=== PATIENT | female | born 1950 | race Caucasian/White ===

== ENCOUNTER 2022-07-17 07:24 | Inpatient (IN) ==
--- NOTE | 2022-07-08 15:44 | XRay Report ---
CLINICAL INFORMATION: Preop for bowel obstruction COMPARISON: 07/27/2016 TECHNIQUE: PA and lateral views were obtained. FINDINGS: The heart size, mediastinum and pulmonary vessels are unremarkable. The lungs are clear. There are no effusions. The bones and soft tissues are within normal limits. IMPRESSION: Normal chest. Interpreted and Authenticated by: Mello Alejandra 07/08/22
[2022-07-08 18:23] LABS: Basophils # (Auto) 0.08 K/mcL (0.00-0.30); Basophils % (Auto) 1.3 % (0.0-2.0); Eosinophils # (Auto) 0.24 K/mcL (0.00-0.70); Eosinophils % (Auto) 3.8 % (0.0-7.0); Hematocrit 33.4 % (34.1-44.9); Hemoglobin 10.5 g/dL (11.2-15.7); Lymphocytes # (Auto) 1.58 K/mcL (1.50-4.80); Lymphocytes % (Auto) 24.7 % (15.5-49.0); Mean Cell Volume 93.3 fL (80.0-100.0); Mean Corpuscular HGB Conc 31.4 g/dL (31.0-36.0); Mean Platelet Volume 10.2 fL (8.8-12.5); Monocytes # (Auto) 0.51 K/mcL (0.10-0.90); Platelet Count 293 K/mcL (140-440); RBC 3.58 M/mcL (3.59-5.38); Red Cell Distribution Width 12.9 % (11.5-14.5); WBC 6.4 K/mcL (4.5-11.0)
[2022-07-08 18:46] LABS: INR 0.9 (0.9-1.1); Partial Thromboplastin Time 28.1 sec (20.0-37.0); Prothrombin Time 12.8 sec (11.9-14.5)
[2022-07-08 18:47] LABS: ALT/SGPT 10 U/L (<40); AST/SGOT 15 U/L (<32); Albumin 4.2 gm/dL (3.2-5.2); Albumin/Globulin Ratio 1.8 (1.0-2.3); Alkaline Phosphatase 87 U/L (39-117); Bilirubin,Total 0.3 mg/dL (0.1-1.0); Blood Urea Nitrogen 23 mg/dL (8-23); Calcium 8.7 mg/dL (8.6-10.4); Carbon Dioxide 26 mmol/L (22-30); Chloride 99 mmol/L (96-108); Globulin 2.4 gm/dL (2.2-3.7); Glomerular Filtration Rate 45; Glucose 84 mg/dL (70-105)
--- NOTE | 2022-07-09 08:47 | EKG ---
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
[~2022-07-17 07:24] MED LIST: CEFEPIME 2 GM VIAL IV SCH
--- OUTSIDE RECORDS SUMMARY | 2022-07-17 07:27 | External Medical Summary | Encounter Summary ---
:1950 Author Care Team Providers Name Role Phone Georges Mchugh MD Primary Care Provider [phone] Reason for Visit CARDIAC CLEARANCE Assessment and Plan 1. Preoperative cardiovascular examinat ion Stress test suggestive of global ischem ia with increase TID ratio. This is not a very specific marker of ischemia -- 50% false positive rate? I am not sure however that we can completely discount it. I wo uld like to take another look at her heart with a stress echo -- a better test to l ook for "balanced" ischemia. 2. Cardiovascular stress test abnormal See above. Elevated TID ratio. Not terr ibly specific. High false positive rate. Recommend stress echo -- not dependant o n relative blood flow. stress echocardiogram (PROC) 3. Essential hypertension On treatment 4. Mixed hyperlipidemia On treatment Discussion Note 1. Stress echo 2. Call with results 3. If normal, then may proceed with surg manav. Patient educational handouts: No information available. Plan of Care Reminders Provider Appointments None recorded. Lab None recorded. Referral None recorded. Procedures Stress Echocardiogram (PROC) 05/15/2022 [facility] [place] Radiology Surgeries None recorded. Imaging None recorded. Medications Name Start Date atorvastatin 10 mg tablet TAKE 1 TABLET BY MOUTH ONCE DAILY calcium PO QD citalopram 40 mg tablet TAKE 1 TABLET BY MOUTH ONCE DAILY estradiol 1 mg tablet TAKE 1 TABLET BY MOUTH ONCE DAILY ketorolac 0.5 % eye drops INSTILL 1 DROP INTO EACH EYE ONCE DAILY losartan 100 mg-hydrochlorothiazide 12.5 mg tablet TAKE 1 TABLET BY MOUTH ONCE DAILY magnesium once daily omeprazole 20 mg capsule,delayed release Take 2 capsules by mouth once daily Prolia 60 mg/mL subcutaneous syringe Inject 1 mL as needed by subcutaneous route. osteoporosis m81.0, prolia J0897, T score -2.3 Notes: Medications were verified with bottles. -AG 05/15/22 Medications Administered None recorded. Vitals Height Weight BMI Blood Pressure 4 ft 11 in 151 lbs 30.5 kg/m2 122/83 mm[Hg] Results Lab Results None recorded. 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 What type of diet are you following? REGULAR Are you able to walk? YESWOREST Are you able to care for yourself? Y Are you currently employed? N Have you processed blood or body fluids N from an Ebola virus disease patient without appropriate PPE? What is your relationship status? Notes : Do you have any pets? Y Have you been to an area known to be N high risk for COVID-19? Are you deaf or do you have serious N difficulty hearing? Are you passively exposed to smoke? Y No cassie: as a child and adult Do you use your seat belt or car seat Y routinely? Do you or have you ever used any other N forms of tobacco or nicotine? Do you have difficulty dressing or N bathing? How many children do you have? 2 Has tobacco cessation counseling been N provided? Are you blind or do you have difficulty N seeing? Do you have smoke and carbon monoxide N detectors in your home? In the 14 days before symptom onset, N have you had close contact with a person who is under investigation for COVID-19 while that person was ill? Do you have difficulty doing errands N alone? What was the date of your most recent 05/15/2022 tobacco screening? Do you reside in or have you traveled to an area where Ebola virus transmission is active? Do you have an advanced directive? N Do you use any illicit or recreational N drugs? What is your exercise level? Occasional In the 14 days before symptom onset, N have you had close contact with a laboratory-confirmed COVID-19 while that case was ill? Have there been any changes to your N family or social situation? Live alone or with others? with others Are you sexually active? N Do you have difficulty concentrating, N remembering or making decisions? What is your level of caffeine Occasional consumption? Do you feel stressed (tense, restless, [id number] nervous, or anxious, or unable to sleep at night)? Functional Status No Impairment. Past Encounters 05/15/2022 Preoperative Cardiovascular Examination; Cardiovascular Stress Test Abnormal; Essential Hypertension; Mixed Hyperlipidemia Db Ugalde MD: [address] [place] [address] , [place] [phone], Ph. History of Present Illness Note: <div>Preoperative cardiac evaluation. Pinched nerve in back of neck. Some numbness with radiation down left arm. Occasional neck and back pains. Not necessarily exertional. Is relatively active.Stress test with elevated TID ratio. </div><div>
</div><div>
</div><div>
</div><div>CARDIAC and medical history:</div><div>Prior gastric bypass 1999</div><div>Severe constipation</div><div>
</div><div>Data review:</div><div>I have independently interpreted:</div><div>Echo 03/2022. Normal LV function normal valves Asc aorta 41</div><div>Malena 03/2022. Normal perfusion. TID 1.28</div><div>Chest CT 02/2022. Minimal coronary ather o</div><div>
</div><div>Labs:</div><div>Cr 1.3 02/2022</div><div>Cr 1.1 11/2021</div><div>AST 16 11/2021</div><div>LDL 97 2021</div><div>
</div><div>
</div> Review of Systems Brief Cardiology ROS Reported By: Patient Cardio Basic: Cardiovascular Symptoms: no chest pressure, no lightheadedness, no chest pa in, no dyspnea on exertion, no fatigue, no leg edema, no sy ncope, no orthopnea, no palpitations, no PND, no lalitha rtness of breath, no claudication Constitutional: Constitutional: no fever, no night sweats, no significant weight gain, no significant weight loss, no exercise intolerance Eyes: Eyes: no dry eyes, no irrita tion, no vision change ENMT: Ears: no difficulty hearing, no ear pain. Nose: no frequent nosebleeds, no nose/sinus pr oblems. Mouth/Throat: no sore throat, no bleeding gums, no snoring, no dry mouth, no mouth ulcers, no oral abnormalitie s, no teeth problems Respiratory: Respiratory: no cough, no wh eezing, no coughing up blood, no sleep apnea Musculoskeletal: Musculoskeletal: no muscle a ches, no muscle weakness, no arthralgias/joint pain, no b ack pain, no swelling in the extremities Neurologic: Neurologic: no loss of consc iousness, no weakness, no numbness, no seizures, no di zziness, no headaches Psychiatric: Psych: no depression, no sle ep disturbances, feeling safe in relationship, no alcohol abu se Hematologic/Lymphatic: Hematologic/Lymphatic no swo llen glands, no bruising Physical Exam Notes: <div>Examination
</div><d iv>Vitals see above</div><div>
</div ><div>General. No acute distress. Conversant.</div><div>
&l t;/div><div>HEENT. Normocephalic atraumatic. Mucous membranes moist. Scle ra anicteric. Oropharynx clear.</div><div>
</div>< div>Chest. Clear. Normal effort. Symmetric.</div><div>
</d iv><div>Cardiovascular. JVP is normal. Normal S1 and S2. No gallops or rubs.< /div><div>
</div><div>Abdomen. Normal bowel sounds. Soft nontender nondi stended. No appreciated hepatosplenomegaly.</div><di v>
</div><div>Extremities. No cyanosis. No clubbing. No edema.</div><di v>
</div><div>Skin. Warm and dry. No rashes.</div><div>
</div> <div>Neurological. Alert and oriented x3. Nonfocal. No asymmetry is no chauncey.</div><div>
</div><div>Psychiatric. Affect and tone are normal.< /div><div>
</div><div>
</div><div>
</div>
--- OUTSIDE RECORDS SUMMARY | 2022-07-17 07:27 | External Medical Summary | Encounter Summary ---
:1950 Author Care Team Providers Name Role Phone Georges Mchugh MD Primary Care Provider [phone] Reason for Visit injection Assessment and Plan 1. Osteoporosis had dexa 2019, now on prolia shots q6m Prolia 60 mg/mL subcutaneous syringe patient follow up phone call* - proli a injection due 01/02/23 Discussion Note: None recorded.Patient educational handouts: No information available. Plan of Care Reminders Provider Appointments None recorded. Lab None recorded. Referral None recorded. Procedures None recorded. Surgeries None recorded. Imaging None recorded. Medications [...] verified with bottles. -AG 05/15/22 Medications Administered Name Date Prolia 60 mg/mL subcutaneous syringe [id number]:1 8:10 Inject 1 mL as needed by subcutaneous route. Vitals None recorded. Results Lab Results None recorded. 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 Vaccine List Vaccine Type COVID-19, mRNA, LNP-S, [...] consumption? Do you feel stressed (tense, restless, [id number] nervous, or anxious, or unable to sleep at night)? Functional Status No Impairment. Past Encounters 07/04/2022 Osteoporosis Georges Mchugh MD: [address] [place] [address], [address], [place] [address], Ph. History of Present Illness None recorded. Review of Systems None recorded. Physical Exam None recorded.
--- OUTSIDE RECORDS SUMMARY | 2022-07-17 07:27 | External Medical Summary ---
:1950 Author Care Team Providers Name Role Phone ISREAL GARCIA MD Primary Care Provider [phone] Allergies Code Code System Name Reaction Severity Status Onset 2670 RxNorm Codeine Other Active 812414 RxNorm Demerol Vomiting Active Medications Name Status Start Date Stop Date alendronate 70 mg tablet Completed 021 atorvastatin 10 mg tablet Active Not av ailable azithromycin 250 mg tablet Completed 12/05 betamethasone valerate 0.1 % topical cream Completed 05/15/[address] - ER 3 mg capsule,delayed,extended release Complet ed 11/20/2020 Take 3 capsules every day by oral route. calcium Active Not available PO QD cholestyramine (with sugar) 4 gram oral powder Completed 11/20/2020 citalopram 40 mg tablet Active Not avai lable clarithromycin 500 mg tablet Completed 09/2020 estradiol 1 mg tablet Active Not availa ble hydrocodone 10 mg-acetaminophen 325 mg tablet Completed 10/18/2020 hydrocodone 5 mg-acetaminophen 325 mg tablet Completed 06/29/2019 hydrocodone 7.5 mg-acetaminophen 325 mg tablet Completed 05/15/2022 TAKE 1 TO 2 TABLETS BY MOUTH EVERY 6 HO URS NEEDED . DO NOT EXCEED 6 PER 24 HOURS ketorolac 0.5 % eye drops Active Not av ailable INSTILL 1 DROP INTO EACH EYE ONCE DAILY losartan 100 mg-hydrochlorothiazide 12.5 mg tablet Active Not available magnesium Active Not available once daily metoclopramide 5 mg tablet Completed 10/06 metoprolol succinate ER 50 mg tablet,extended release 24 hr Comp leted 10/18/2020 take 50mg at first sign of bp over 160 mmhg systolic metronidazole 500 mg tablet Completed 09/2020 derorjvl-btjgoykul-vmhvidhw 3.5 mg/mL-10,000 unit/mL-0.1% eye dr ops Completed 05/15/2022 INSTILL 1 DROP INTO EACH EYE THREE TIMES DAILY omeprazole 20 mg capsule,delayed release Active Not available oseltamivir 75 mg capsule Completed 2021 oxycodone 5 mg tablet Completed 12/06/2019 Prolia 60 mg/mL subcutaneous syringe Active Not available Inject 1 mL as needed by subcutaneous route. osteoporosis m81.0, prolia J0897, T score -2.3 promethazine 25 mg tablet Completed 2021 TAKE 1 TABLET BY MOUTH EVERY 6 HOURS NEEDED FOR NAUSEA tranexamic acid 650 mg tablet Completed TAKE 2 TABLETS BY MOUTH UPON ARRIVAL HOME THEN 2 TABLETS AT BED TIME. Ventolin HFA 90 mcg/actuation aerosol inhaler Completed 04/09/2021 Notes: Medications were verified with bottles. 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 Osteoporosis Active 04/06/2020 Hyperlipidemia Active 04/11/2022 Intussusception of Intestine Active 04/11/2022 Procedures Date Name Performed by 01/20/2019 MRI, Knee, W/o Contrast [facility] [address] [facility] [place] [id number] (Work [address]) 04/05/2019 MRI, Upper Extremity Joint(s), W/o [facility] Contrast [address] [facility] [place] [id number] (Work Place) 04/05/2019 Dexa [facility] [address] [place] [address] (Work Place) 04/06/2020 Dexa [facility] [address] [place] [address] (Work Place) 04/06/2020 MAMMO, Screening, Bilateral [facility] [address] [place] [address] (Work Place) 04/09/2021 MAMMO, Screening, Digital, Bilateral [facility] [address] [place] [address] (Work Place) 2022 CT, Abdomen, W/o Contrast [facility] [address] [place] [address] (Work Place) 02/27/2022 MRI, Liver, W/wo Contrast [facility] [address] [place] [address] (Work Place) 02/27/2022 CT, Chest, W/o Contrast [facility] [address] [place] [address] (Work Place) 04/18/2022 MAMMO, Screening, Digital, Bilateral [facility] [address] [place] [address] (Work Place) 04/11/2022 DEXA, Axial Skeleton [facility] [address] [place] [address] (Work Place) Results Lab Results Date Name Specimen Result Interpretation Description Value Range Status Address 05/14/2022 Lipid Plasma High Cholesterol 218 <200 Final Pathologists' Panel, mg/dL mg/dL Regional L ab: Blood [address] [place] [address] Plasma Triglycerides 143 <150 Final Pa thologists' mg/dL mg/dL Regional L ab: [address] [place] [address] Plasma LDL,calculate 97 <100 Final Pa thologists' d mg/dL mg/dL Regional L ab: [address] [place] [address] Plasma HDL 93 >40 Final Pathologis ts' Cholesterol mg/dL mg/dL Regio nal Lab: [address] [place] [address] Plasma non-HDL 125 <130 Final Patholog ists' Cholesterol mg/dL mg/dL Regio nal Lab: [address] [place] [address] 12/18/2021 CMP, Plasma Glucose,rando 90 70-105 Final Pathologists' Serum or m mg/dL mg/dL Regional Lab: Plasma [address] [place] [address] Plasma High Blood Urea 25 8-23 Final Patho logists' Nitrogen mg/dL mg/dL Regional Lab: [address] [place] [address] Plasma Creatinine 1.1 0.6-1.1 Final Path ologists' mg/dL mg/dL Regional L ab: [address] [place] [address] Plasma Sodium 137 133-145 Final Patholog ists' mmol/L mmol/L Regional L ab: [address] [place] [address] Plasma Potassium 4.3 3.3-5.1 Final Patho logists' mmol/L mmol/L Regional L ab: [address] [place] [address] Plasma Chloride 101 96-108 Final Patholo gists' mmol/L mmol/L Regional L ab: [address] [facility] , [place] Plasma Carbon 26 22-30 Final Pathologi sts' Dioxide mmol/L mmol/L Regional Lab: [address] [place] [address] , [place] Plasma Anion Gap 10.0 8.0-16. Final Patho logists' 0 Regional L ab: [address] [facility] , [place] Plasma Calcium 9.2 8.6-10. Final Patholo gists' mg/dL 4 mg/dL Regional Lab: [address] [place] [address] , [place] Plasma Total Protein 6.7 5.9-8.4 Final P athologists' gm/dL gm/dL Regional L ab: [address] [place] [address] , [place] Plasma Albumin 4.1 3.2-5.2 Final Patholo gists' gm/dL gm/dL Regional L ab: [address] [place] [address] , [place] Plasma Globulin 2.6 2.2-3.7 Final Pathol ogists' gm/dL gm/dL Regional L ab: [address] [place] [address] , [place] Plasma Alb/glob 1.6 1.0-2.3 Final Pathol ogists' Ratio Regional L ab: [address] [place] [address] , [place] Plasma Bilirubin,tot 0.2 0.1-1.0 Final P athologists' al mg/dL mg/dL Regional L ab: [address] [facility] , [place] Plasma AST/SGOT 16 U/L <32 U/L Final Pathol ogists' Regional L ab: [address] [place] [address] , [place] Plasma ALT/SGPT 12 U/L <40 U/L Final Pathol ogists' Regional L ab: [address] [place] [address] , [place] Plasma Alkaline 69 U/L 39-117 Final Patholo gists' Phosphatase U/L Regio nal Lab: [address] [place] [address] , [place] Plasma Glomerular 51 Final Patho logists' Filtration Region al Lab: Rate [address] [facility] , [place] 12/18/2021 Magnesium Plasma Magnesium 2.2 1.6-2.5 Final Pathologists' , Serum mg/dL mg/dL Regional Lab: or Plasma [address] [place] [address], [place] 12/18/2021 Phosphoru Plasma Phosphorus 4.3 2.5-4.5 Anaya l Pathologists' s, Serum mg/dL mg/dL Regional Lab: or Plasma [address] [place] [address], [place] 08/21/2021 CBC W/ Whole Wbc 8.6 4.5-11. Final Patho logists' Auto Diff Blood K/mcL 0 K/mcL Region al Lab: [address] [facility] , [place] Whole Rbc 4.39 3.59-5. Final Pathologi sts' Blood M/mcL 38 Regional L ab: M/mcL [address] [facility] [place] [address] , [place] Whole Hgb 12.0 11.2-15 Final Pathologi sts' Blood g/dL .7 g/dL Regional Lab: [address] [facility] , [place] Whole Hct 37.3 % 34.1-44 Final Pathologi sts' Blood .9 % Regional L ab: [address] [facility] , [place] Whole Mcv 85.0 fL 80.0-10 Final Patholog ists' Blood 0.0 fL Regional L ab: [address] [facility] , [place] Whole Mch 27.3 pg 26.0-34 Final Patholog ists' Blood .0 pg Regional L ab: [address] [facility] , [place] Whole Mchc 32.2 31.0-36 Final Pathologi sts' Blood g/dL .0 g/dL Regional Lab: [address] [facility] , [place] Whole High Rdw 15.1 % 11.5-14 Final Pathologi sts' Blood .5 % Regional L ab: [address] [facility] , [place] Whole Plt CT 351 140-440 Final Patholog ists' Blood K/mcL K/mcL Regional L ab: [address] [facility] , [place] Whole Mpv 10.2 fL 7.4-10. Final Patholog ists' Blood 4 fL Regional L ab: [address] [facility] , [place] Whole Neut % 62.5 % 38.0-78 Final Patholog ists' Blood .0 % Regional L ab: [address] [facility] [place] [facility] [address] , [place] Whole Lymph % 23.9 % 15.5-49 Final Patholo gists' Blood .0 % Regional L ab: [address] [facility] [address] , [place] Whole [place] % 8.0 % 1.0-12. Final Patholog ists' Blood 0 % Regional L ab: [address] [facility] [address] , [place] Whole Eos % 4.3 % 0.0-7.0 Final Pathologi sts' Blood % Regional L ab: [address] [facility] [address] , [place] Whole Baso % 1.3 % 0.0-2.0 Final Patholog ists' Blood % Regional L ab: [address] [facility] , [place] Whole Absolute 5.40 1.80-8. Final Pathol ogists' Blood Neutrophil K/mcL 00 Region al Lab: Count K/mcL [address] [facility] , [place] Whole Lymph # 2.06 1.50-4. Final Patholo gists' Blood K/mcL 80 Regional L ab: K/mcL [address] [facility] , [place] Whole [place] # 0.69 0.10-0. Final Patholog ists' Blood K/mcL 90 Regional L ab: K/mcL [address] [facility] , [place] Whole Eos # 0.37 0.00-0. Final Pathologi sts' Blood K/mcL 70 Regional L ab: K/mcL [address] [facility] , [place] Whole Baso # 0.11 0.00-0. Final Patholog ists' Blood K/mcL 30 Regional L ab: K/mcL [address] [facility] , [place] 08/21/2021 Reticuloc Whole Retic Count 0.05 0.02-0. Fin al Pathologists' yte Blood Abs M/mcL 10 Regional L ab: Count, M/mcL [address] [facility] , Absolute, [facility] n Blood Whole Retic Percent 1.13 % 0.50-1. Final P athologists' Blood 50 % Regional L ab: [address] [place] [address] 08/21/2021 Ferritin, Plasma Low Ferritin 19.4 30.0-40 Final Pathologists' Serum or NG/mL 0.0 Regional Lab: Plasma NG/mL [address] [place] [address] 08/21/2021 TIBC Plasma Iron 74 37-145 Final Pathol ogists' (Total ug/dL ug/dL Regional L ab: Iron-bind [address] [facility], ing [place] Capacity) , Serum Plasma Unsaturated 345 112-346 Final Pat hologists' Iron Binding mcg/dL mcg/dL Ana M onal Lab: Cap [address] [place] [address] Plasma TIBC 419 228-428 Final Pathologi sts' Calculation ug/dL ug/dL Regio nal Lab: [address] [place] [address] Plasma % Transferrin 18 % 15-50 % Final P athologists' Saturation Region al Lab: [address] [place] [address] 06/27/2021 Magnesium Plasma Magnesium 2.2 1.6-2.5 Final Pathologists' , Serum mg/dL mg/dL Regional Lab: or Plasma [address] [place] [address] 06/27/2021 Phosphoru Plasma Phosphorus 3.8 2.5-4.5 Anaya l Pathologists' s, Serum mg/dL mg/dL Regional Lab: or Plasma [address] [facility], [place] 06/27/2021 CMP, Plasma Glucose,rando 78 70-105 Final Pathologists' Serum or m mg/dL mg/dL Regional Lab: Plasma [address] [facility] , [place] Plasma High Blood Urea 25 8-23 Final Patho logists' Nitrogen mg/dL mg/dL Regional Lab: [address] [place] [address] , [place] Plasma Creatinine 1.1 0.6-1.1 Final Path ologists' mg/dL mg/dL Regional L ab: [address] [facility] , [place] Plasma Sodium 142 133-145 Final Patholog ists' mmol/L mmol/L Regional L ab: [address] [facility] , [place] Plasma Potassium 4.7 3.3-5.1 Final Patho logists' mmol/L mmol/L Regional L ab: [address] [facility] , [place] Plasma Chloride 103 96-108 Final Patholo gists' mmol/L mmol/L Regional L ab: [address] [place] [address] , [place] Plasma High Carbon 31 22-30 Final Pathologi sts' Dioxide mmol/L mmol/L Regional Lab: [address] [facility] , [place] Plasma Anion Gap 8.0 8.0-16. Final Patho logists' 0 Regional L ab: [address] [facility] , [place] Plasma Calcium 8.7 8.6-10. Final Patholo gists' mg/dL 4 mg/dL Regional Lab: [address] [place] [address] , [place] Plasma Total Protein 5.9 5.9-8.4 Final P athologists' gm/dL gm/dL Regional L ab: [address] [place] [address] , [place] Plasma Albumin 4.0 3.2-5.2 Final Patholo gists' gm/dL gm/dL Regional L ab: [address] [facility] , [place] Plasma Low Globulin 1.9 2.2-3.7 Final Pathol ogists' gm/dL gm/dL Regional L ab: [address] [facility] , [place] Plasma Alb/glob 2.1 1.0-2.3 Final Pathol ogists' Ratio Regional L ab: [address] [facility] , [place] Plasma Bilirubin,tot 0.3 0.1-1.0 Final P athologists' al mg/dL mg/dL Regional L ab: [address] [facility] , [place] Plasma AST/SGOT 15 U/L <32 U/L Final Pathol ogists' Regional L ab: [address] [facility] , [place] Plasma ALT/SGPT 11 U/L <40 U/L Final Pathol ogists' Regional L ab: [address] , [place] Plasma Alkaline 85 U/L 39-117 Final Patholo gists' Phosphatase U/L Regio nal Lab: [address] , [place] Plasma Glomerular 51 Final Patho logists' Filtration Region al Lab: Rate [address] , [place] 04/09/2021 UA U Urine Color yellow Final Pathologists' W/microsc Regiona l Lab: opic [address] , Always, [place] (CS If Ind.) U Urine clear clear Final Pathologis ts' Appearance Region al Lab: [address] , [place] U Specific 1.012 1.000-1 Final Pathol ogists' [place],urine .035 Reg ional Lab: [address] , [place] U pH,urine 6.0 5.0-9.0 Final Pathol ogists' Regional L ab: [address] , [place] U Urine Protein negativ negativ Final Pathologists' e mg/dL e mg/dL Regional Lab: [address] , [place] U Urine Glucose negativ negativ Final Pathologists' (UA) e mg/dL e mg/dL Regional Lab: [address] , [place] U Urine Ketone negativ negativ Final P athologists' e mg/dL e mg/dL Regional Lab: [address] , [place] U Urine negativ negativ Final Patholog ists' Urobilinogen e mg/dL e/trell Re gional Lab: l mg/dL [address], [place] U Urine negativ negativ Final Patholog ists' Bilirubin e mg/dL e mg/dL Regio nal Lab: [address] , [place] U Urine Blood negativ negativ Final Pa thologists' e mg/dL e mg/dL Regional Lab: [address] , [place] U Urine Nitrite negativ negativ Final Pathologists' e e Regional L ab: [address] , [place] U Urine negativ negativ Final Patholog ists' Leukocyte e /ug e /ug Regiona l Lab: Esterase [address], [place] U Urine RBC 1 /hpf 0-3 Final Pathol ogists' /hpf Regional L ab: [address] , [place] U Urine WBC 0 /hpf 0-4 Final Pathol ogists' /hpf Regional L ab: [address] [place] [address] U Urine <1 /hpf 0-4 Final Pathologi sts' Squamous Epi /hpf Ana M onal Lab: Cells [address] [place] [address] U Urine none 0 /hpf Final Pathologis ts' Bacteria /hpf Regional Lab: [address] [place] [address] U ABNORMA Urine Mucus few none Final Pat hologists' L /hpf /hpf Regional L ab: [address] [place] [address] U Add Culture? no Final Pat hologists' Regional L ab: [address] [place] [address] 04/09/2021 CBC W/ Whole Wbc 7.1 4.5-11. Final Patho logists' Auto Diff Blood K/mcL 0 K/mcL Region al Lab: [address] [place] [address] Whole Rbc 4.05 4.00-5. Final Pathologi sts' Blood M/mcL 20 Regional L ab: M/mcL [address] [place] [address] Whole Low Hgb 10.9 12.0-15 Final Pathologi sts' Blood g/dL .0 g/dL Regional Lab: [address] [place] [address] Whole Low Hct 34.9 % 36.0-48 Final Pathologi sts' Blood .0 % Regional L ab: [address] [place] [address] Whole Mcv 86.2 fL 80.0-10 Final Patholog ists' Blood 0.0 fL Regional L ab: [address] [place] [address] Whole Mch 26.9 pg 26.0-34 Final Patholog ists' Blood .0 pg Regional L ab: [address] [place] [address] Whole Mchc 31.2 31.0-36 Final Pathologi sts' Blood g/dL .0 g/dL Regional Lab: [address] [place] [address] Whole Rdw 13.8 % 11.5-14 Final Pathologi sts' Blood .5 % Regional L ab: [address] [place] [address] 287 140-440 Final Patholog ists' Blood K/mcL K/mcL Regional L ab: [address] [place] [address] Whole High Mpv 10.5 fL 7.4-10. Final Patholog ists' Blood 4 fL Regional L ab: [address] [place] [address] Whole Neut % 64.3 % 38.0-78 Final Patholog ists' Blood .0 % Regional L ab: 415 [facility] , [place] Whole Lymph % 22.6 % 15.0-49 Final Patholo gists' Blood .0 % Regional L ab: [address] , [place] Whole [place] % 8.2 % 1.0-12. Final Patholog ists' Blood 0 % Regional L ab: [address] , [place] Whole Eos % 3.9 % 0.0-7.0 Final Pathologi sts' Blood % Regional L ab: [address] , [place] Whole Baso % 1.0 % 0.0-2.0 Final Patholog ists' Blood % Regional L ab: [address] , [place] Whole Absolute 4.57 1.80-8. Final Pathol ogists' Blood Neutrophil K/mcL 00 Region al Lab: Count K/mcL [address] , [place] Whole Lymph # 1.61 1.50-4. Final Patholo gists' Blood K/mcL 80 Regional L ab: K/mcL [address] , [place] Whole [place] # 0.58 0.10-0. Final Patholog ists' Blood K/mcL 90 Regional L ab: K/mcL [address] , [place] Whole Eos # 0.28 0.00-0. Final Pathologi sts' Blood K/mcL 70 Regional L ab: K/mcL [address] , [place] Whole Baso # 0.07 0.00-0. Final Patholog ists' Blood K/mcL 20 Regional L ab: K/mcL [address] [facility] , [place] 04/09/2021 CMP, Plasma Low Glucose,rando 69 70-105 Final Pathologists' Serum or m mg/dL mg/dL Regional Lab: Plasma [address] [facility] , [place] Plasma Blood Urea 19 8-23 Final Patho logists' Nitrogen mg/dL mg/dL Regional Lab: 415 [facility] , [place] Plasma Creatinine 0.8 0.6-1.1 Final Path ologists' mg/dL mg/dL Regional L ab: [address] , [place] Plasma Sodium 141 133-145 Final Patholog ists' mmol/L mmol/L Regional L ab: [address] , [place] Plasma Potassium 4.4 3.3-5.1 Final Patho logists' mmol/L mmol/L Regional L ab: [address] [facility] , [place] Plasma Cl 103 96-108 Final Pathologis ts' mmol/L mmol/L Regional L ab: [address] [facility] , [place] Plasma Carbon 27 22-30 Final Pathologi sts' Dioxide mmol/L mmol/L Regional Lab: [address] , [place] Plasma Anion Gap 11.0 8.0-16. Final Patho logists' 0 Regional L ab: [address] , [place] Plasma Calcium 8.8 8.6-10. Final Patholo gists' mg/dL 4 mg/dL Regional Lab: [address] , [place] Plasma Total Protein 6.3 5.9-8.4 Final P athologists' gm/dL gm/dL Regional L ab: [address] , [place] Plasma Albumin 4.1 3.2-5.2 Final Patholo gists' gm/dL gm/dL Regional L ab: [address] , [place] Plasma Globulin 2.2 2.2-3.7 Final Pathol ogists' gm/dL gm/dL Regional L ab: [address] , [place] Plasma Alb/glob 1.9 1.0-2.3 Final Pathol ogists' Ratio Regional L ab: [address] , [place] Plasma Bilirubin,tot 0.3 0.1-1.0 Final P athologists' al mg/dL mg/dL Regional L ab: [address] , [place] Plasma AST/SGOT 17 U/L <32 U/L Final Pathol ogists' Regional L ab: [address] , [place] Plasma ALT/SGPT 12 U/L <40 U/L Final Pathol ogists' Regional L ab: [address] , [place] Plasma Alkaline 80 U/L 39-117 Final Patholo gists' Phosphatase U/L Regio nal Lab: [address] , [place] Plasma Glomerular 75 Final Patho logists' Filtration Region al Lab: Rate [address] [facility] 04/09/2021 TSH, Plasma Thyroid 2.33 0.27-5. Final Pat hologists' Serum or Stimulating uIU/mL 01 Reg ional Lab: Plasma Hormone If uIU/mL [address] , [place] 04/09/2021 Lipid Plasma High Cholesterol 220 <200 Final Pathologists' Panel, mg/dL mg/dL Regional L ab: Blood [address] , [place] Plasma Triglycerides 116 <150 Final Pa thologists' mg/dL mg/dL Regional L ab: [address] , [place] Plasma High LDL,calculate 105 <100 Final Pa thologists' d mg/dL mg/dL Regional L ab: [address] , [place] Plasma HDL 92 >40 Final Pathologis ts' Cholesterol mg/dL mg/dL Regio nal Lab: [address] , [place] Plasma non-HDL 128 <130 Final Patholog ists' Cholesterol mg/dL mg/dL Regio nal Lab: [address] [facility] , [place] 04/09/2021 Vitamin Plasma Vitamin D, 47.88 >30.00 Final Pathologists' D, 25-Hydroxy NG/mL NG/mL Region al Lab: 25-Hydrox [address], y, Total, [place] n Serum 02/09/2021 Lipid Plasma High Cholesterol 207 <200 Final Pathologists' Panel, mg/dL mg/dL Regional L ab: Blood [address] , [place] Plasma Triglycerides 139 <150 Final Pa thologists' mg/dL mg/dL Regional L ab: [address] , [place] Plasma LDL,calculate 90 <100 Final Pa thologists' d mg/dL mg/dL Regional L ab: [address] [place] [address] Plasma HDL 90 >40 Final Pathologis ts' Cholesterol mg/dL mg/dL Regio nal Lab: [address] [facility] , [place] Plasma non-HDL 117 <130 Final Patholog ists' Cholesterol mg/dL mg/dL Regio nal Lab: [address] [place] [address] 12/04/2020 Pathology Skin Microscopic Anaya l Pathologists' Study Diagnosis Regiona l Lab: [address] [place] [address] Skin Procedural inflame Final Path ologists' Impression d Region al Lab: seborrh [address], eic [place] keratos is. Skin Gross Final Pathologis ts' Description Regio nal Lab: [address] [place] [address] Skin Electronicall Pa thologists' y Signed Regional Lab: [address] [facility] , [place] 10/20/2020 Lipid Plasma High Cholesterol 272 <200 Final Pathologists' Panel, mg/dL mg/dL Regional L ab: Blood [address] , [place] Plasma Triglycerides 144 <150 Final Pa thologists' mg/dL mg/dL Regional L ab: [address] , [place] Plasma High LDL,calculate 150 <100 Final Pa thologists' d mg/dL mg/dL Regional L ab: [address] , [place] Plasma HDL 94 >40 Final Pathologis ts' Cholesterol mg/dL mg/dL Regio nal Lab: [address] , [place] Plasma High non-HDL 178 <130 Final Patholog ists' Cholesterol mg/dL mg/dL Regio nal Lab: [address] [place] [address] 07/05/2020 Lipid Plasma High Cholesterol 268 <200 Final Pathologists' Panel, mg/dL mg/dL Regional L ab: Blood [address] [facility] , [place] Plasma Triglycerides 127 <150 Final Pa thologists' mg/dL mg/dL Regional L ab: [address] [place] [address] Plasma High LDL,calculate 169 <100 Final Pa thologists' d mg/dL mg/dL Regional L ab: [address] [place] [address] Plasma HDL 74 >40 Final Pathologis ts' Cholesterol mg/dL mg/dL Regio nal Lab: [address] [facility] , [place] Plasma High non-HDL 194 <130 Final Patholog ists' Cholesterol mg/dL mg/dL Regio nal Lab: [address] [place] [address] 06/20/2020 CMP, Glucose,rando 97 70-105 Final Pathologists' Serum or m mg/dL mg/dL Regional Lab: Plasma [address] [place] [address] Blood Urea 18 8-23 Final Patho logists' Nitrogen mg/dL mg/dL Regional Lab: [address] [place] [address] Creatinine 1.0 0.6-1.1 Final Path ologists' mg/dL mg/dL Regional L ab: [address] [place] [address] Sodium 140 133-145 Final Patholog ists' mmol/L mmol/L Regional L ab: [address] [place] [address] Potassium 4.4 3.3-5.1 Final Patho logists' mmol/L mmol/L Regional L ab: [address] [place] [address] Chloride 104 96-108 Final Patholo gists' mmol/L mmol/L Regional L ab: [address] [facility] , [place] Carbon 26 22-30 Final Pathologi sts' Dioxide mmol/L mmol/L Regional Lab: [address] [place] [address] Anion Gap 10.0 8-16 Final Pathol ogists' Regional L ab: [address] [place] [address] Calcium 8.8 8.6-10. Final Patholo gists' mg/dL 4 mg/dL Regional Lab: [address] [place] [address] Total Protein 6.1 5.9-8.4 Final P athologists' gm/dL gm/dL Regional L ab: [address] [place] [address] Albumin 4.0 3.2-5.2 Final Patholo gists' gm/dL gm/dL Regional L ab: [address] [place] [address] Low Globulin 2.1 2.2-3.7 Final Pathol ogists' gm/dL gm/dL Regional L ab: [address] [place] [address] Alb/glob 1.9 1.0-2.3 Final Pathol ogists' Ratio Regional L ab: [address] [place] [address] Bilirubin,tot 0.2 0.0-1.0 Final P athologists' al mg/dL mg/dL Regional L ab: [address] [place] [address] AST/SGOT 13 U/l 0-37 Final Patholo gists' U/l Regional L ab: [address] [place] [address] ALT/SGPT 7 U/l 0-40 Final Patholo gists' U/l Regional L ab: [address] [place] [address] Alkaline 93 U/L 39-117 Final Patholo gists' Phosphatase U/L Regio nal Lab: [address] [place] [address] Glomerular 57 Final Patho logists' Filtration Region al Lab: Rate [address] [place] [address] 06/20/2020 Phosphoru Phosphorus 3.3 2.7-4.5 Anaya l Pathologists' s, Serum mg/dL mg/dL Regional Lab: or Plasma 415 [facility], [place] 06/20/2020 Magnesium Serum or Magnesium 2.3 1.6-2.5 Fin al Pathologists' , Serum plasma mg/dL mg/dL Regional Lab: or Plasma magnesium [address] [facility], measureme [place] (moles/vo lume) 04/06/2020 Urinalysi Urine Color straw [facility]aya l [facility]ologists' s, Regional L ab: Microscop [facility], [place] Urine clear Final Pathologis ts' Appearance Region al Lab: [address] [place] [address] Specific 1.006 1.000-1 Final Pathol ogists' [place],urine .035 Reg ional Lab: [address] [place] [address] pH,urine 7.0 5.0-9.0 Final Pathol ogists' Regional L ab: [address] [place] [address] Urine Protein neg neg Final Pa thologists' mg/dL mg/dL Regional L ab: [address] [place] [address] Urine Glucose negativ neg Final P athologists' (UA) e mg/dL mg/dL Regional Lab: [address] [place] [address] Urine Ketone neg neg Final Pat hologists' mg/dL mg/dL Regional L ab: [address] [facility] , [place] Urine neg neg Final Pathologis ts' Urobilinogen mg/dL mg/dL Ana M onal Lab: [address] , [place] Urine neg neg Final Pathologis ts' Bilirubin mg/dL mg/dL Regiona l Lab: [address] , [place] Urine Blood neg <0.03 Final Path ologists' mg/dL mg/dL Regional L ab: [address] , [place] Urine Nitrite neg neg Final Pa thologists' Regional L ab: [address] , [place] Urine neg /uL neg /uL Final Patholog ists' Leukocyte Regiona l Lab: Esterase [address], [place] Urine RBC 0 /hpf 0-1 Final Pathol ogists' /hpf Regional L ab: [address] , [place] Urine WBC 1 /hpf 0-4 Final Pathol ogists' /hpf Regional L ab: [address] , [place] Urine 1 /hpf 0-4 Final Pathologis ts' Squamous /hpf Regional Lab: Epithelial [address], Cell [place] High Urine few 0 /hpf Final Pathologis ts' Bacteria /hpf Regional Lab: [address] , [place] Urine Mucus few 0 /hpf Final Path ologists' /hpf Regional L ab: [address] , [place] Add Culture? yes Final Pat hologists' Regional L ab: [address] , [place] 04/06/2020 CBC W/ Automated Wbc 6.6 4.50-11 Final Pa thologists' Auto Diff blood K/mcL .00 Regiona l Lab: basophil K/mcL [address], count [place] (number/v olume) Automated Rbc 4.17 3.59-5. Final Pathol ogists' blood M/mcL 38 Regional L ab: basophil M/mcL [address], count [place] (number/v olume) Automated Hemoglobin 12.1 11.2-15 Final P athologists' blood g/dL .7 g/dL Regional Lab: basophil [address], count [place] (number/v olume) Automated Hematocrit 38.2 % 34.1-44 Final P athologists' blood .9 % Regional L ab: basophil [address], count [place] (number/v olume) Automated Mean Cell 91.6 fL 80.0-10 Final P athologists' blood Volume 0.0 fL Regional L ab: basophil [address], count [place] (number/v olume) Automated Mean 29.0 pg 26.0-34 Final Patho logists' blood Corpuscular .0 pg Regio nal Lab: basophil Hemoglobin [address], count [place] (number/v olume) Automated Mean 31.7 31.0-36 Final Pathol ogists' blood Corpuscular g/dL .0 g/dL Ana M onal Lab: basophil HGB Conc [address], count [place] (number/v olume) Automated Red Cell 12.8 % 11.5-14 Final Pat hologists' blood Distribution .5 % Ana M onal Lab: basophil Width [address], count [place] (number/v olume) Automated Platelet 286 140-440 Final Pat hologists' blood Count K/mcL K/mcL Regional L ab: basophil [address], count [place] (number/v olume) Automated Mean Platelet 10.1 fL 7.4-10. [facility]aya l Pathologists' blood Volume 4 fL Regional L ab: basophil [address], count [place] (number/v olume) Automated Gran % 65.7 % 38.0-78 Final Patho logists' blood .0 % Regional L ab: basophil [address], count [place] (number/v olume) Automated Lymph % 20.6 % 15.5-49 Final Path ologists' blood .0 % Regional L ab: basophil [address], count [place] (number/v olume) Automated [place] % 7.6 % 1.0-12. Final Patho logists' blood 0 % Regional L ab: basophil [address], count [place] (number/v olume) Automated Eos % 5.0 % 0.0-7.0 Final Pathol ogists' blood % Regional L ab: basophil [address], count [place] (number/v olume) Automated Baso % 1.1 % 0.0-2.0 Final Patho logists' blood % Regional L ab: basophil [address], count [place] (number/v olume) Automated Gran # 4.31 1.80-8. Final Patho logists' blood K/mcL 00 Regional L ab: basophil K/mcL [address], count [place] (number/v olume) Automated Low Lymph # 1.35 1.50-4. Final Path ologists' blood K/mcL 80 Regional L ab: basophil K/mcL [address], count [place] (number/v olume) Automated [place] # 0.50 0.10-0. Final Patho logists' blood K/mcL 90 Regional L ab: basophil K/mcL [address], count [place] (number/v olume) Automated Eos # 0.33 0.00-0. Final Pathol ogists' blood K/mcL 70 Regional L ab: basophil K/mcL [address], count [place] (number/v olume) Automated Baso # 0.07 0.00-0. Final Patho logists' blood K/mcL 30 Regional L ab: basophil K/mcL [address], count [place] (number/v olume) 04/06/2020 Urinalysi Urine Color straw [facility] s, Regional L ab: Microscop [address], ic [place] Urine clear Final Pathologis ts' Appearance Region al Lab: [address] , [place] Specific 1.009 1.000-1 Final Pathol ogists' [place],urine .035 Reg ional Lab: [address] , [place] pH,urine 7.0 5.0-9.0 Final Pathol ogists' Regional L ab: [address] , [place] Urine Protein neg neg Final Pa thologists' mg/dL mg/dL Regional L ab: [address] , [place] Urine Glucose negativ neg Final P athologists' (UA) e mg/dL mg/dL Regional Lab: [address] , [place] Urine Ketone neg neg Final Pat hologists' mg/dL mg/dL Regional L ab: [address] , [place] Urine neg neg Final Pathologis ts' Urobilinogen mg/dL mg/dL Ana M onal Lab: [address] , [place] Urine neg neg Final Pathologis ts' Bilirubin mg/dL mg/dL Regiona l Lab: [address] , [place] Urine Blood neg <0.03 Final Path ologists' mg/dL mg/dL Regional L ab: [address] , [place] Urine Nitrite neg neg Final Pa thologists' Regional L ab: [address] , [place] Urine neg /uL neg /uL Final Patholog ists' Leukocyte Regiona l Lab: Esterase [address], [place] Urine RBC < 1 0-1 Final Pathol ogists' /hpf /hpf Regional L ab: [address] [facility] , [place] Urine WBC < 1 0-4 Final Pathol ogists' /hpf /hpf Regional L ab: [address] [facility] , [place] Urine 1 /hpf 0-4 Final Pathologis ts' Squamous /hpf Regional Lab: Epithelial [address] , Cell [place] High Urine few 0 /hpf Final Pathologis ts' Bacteria /hpf Regional Lab: [address] [place] [address] Add Culture? yes Final Pat hologists' Regional L ab: [address] [facility] , [place] 04/06/2020 CMP, Glucose,rando 84 70-105 Final Pathologists' Serum or m mg/dL mg/dL Regional Lab: Plasma [address] [place] [address] Blood Urea 15 8-23 Final Patho logists' Nitrogen mg/dL mg/dL Regional Lab: [address] [place] [address] Creatinine 0.9 0.6-1.1 Final Path ologists' mg/dL mg/dL Regional L ab: [address] [place] [address] Sodium 140 133-145 Final Patholog ists' mmol/L mmol/L Regional L ab: [address] [place] [address] Potassium 4.9 3.3-5.1 Final Patho logists' mmol/L mmol/L Regional L ab: [address] [facility] , [place] Chloride 102 96-108 Final Patholo gists' mmol/L mmol/L Regional L ab: [address] [facility] , [place] Carbon 27 22-30 Final Pathologi sts' Dioxide mmol/L mmol/L Regional Lab: [address] [place] [address] Anion Gap 11.0 8-16 Final Pathol ogists' Regional L ab: [address] [facility] , [place] Calcium 9.2 8.6-10. Final Patholo gists' mg/dL 4 mg/dL Regional Lab: [address] [place] [address] Total Protein 6.2 5.9-8.4 Final P athologists' gm/dL gm/dL Regional L ab: [address] [facility] , [place] Albumin 4.4 3.2-5.2 Final Patholo gists' gm/dL gm/dL Regional L ab: [address] [place] [address] Low Globulin 1.8 2.2-3.7 Final Pathol ogists' gm/dL gm/dL Regional L ab: [address] [place] [address] High Alb/glob 2.4 1.0-2.3 Final Pathol ogists' Ratio Regional L ab: [address] [facility] , [place] Bilirubin,tot 0.3 0.0-1.0 Final P athologists' al mg/dL mg/dL Regional L ab: [address] [facility] , [place] AST/SGOT 14 U/l 0-37 Final Patholo gists' U/l Regional L ab: [address] [place] [address] ALT/SGPT 11 U/l 0-40 Final Patholo gists' U/l Regional L ab: [address] [facility] , [place] Alkaline 73 U/L 39-117 Final Patholo gists' Phosphatase U/L Regio nal Lab: [address] [facility] , [place] Glomerular 65 Final Patho logists' Filtration Region al Lab: Rate [address] [facility] , [place] 04/06/2020 Lipid High Cholesterol 280 <200 Final Pathologists' Panel, mg/dL mg/dL Regional L ab: Blood [address] [facility] , [place] Triglycerides 141 <150 Final Pa thologists' mg/dL mg/dL Regional L ab: [address] [facility] , [place] HDL 96 >40 Final Pathologis ts' Cholesterol mg/dL mg/dL Regio nal Lab: [address] [place] [address] High LDL,calculate 156 see Final Pa thologists' d mg/dL chart Regional L ab: mg/dL [address] [facility] , [place] High non-HDL 184 LDL Final Patholog ists' Cholesterol target+ Ana M onal Lab: 30 [address] [facility] , [place] 04/06/2020 TSH, Serum or Thyroid 2.74 0.27-5. Final P athologists' Serum or plasma Stimulating uIU/mL 01 Reg ional Lab: Plasma thyroid Hormone uIU/mL [address], stimulati [place] ng hormone (TSH) measureme nt Serum or Results Pathol ogists' plasma Regional L ab: thyroid [address], stimulati [place] hormone (TSH) measureme nt 04/06/2020 Vitamin Serum or Vitamin D, 41.69 >=30 Final Pathologists' D, plasma 25-Hydroxy NG/mL NG/mL Region al Lab: 25-Hydrox calcidiol [address], y, Total, measureme [place] Serum nt (mass/vol ume) Serum or Results Pathol ogists' plasma Regional L ab: calcidiol [address], measureme [place] (mass/vol ume) 04/06/2020 Culture, URINE Results Pa thologists' Urine Regional L ab: [address] , [place] 04/05/2019 CBC W/ Automated Wbc 6.5 4.5-11. Final Pa thologists' Auto Diff blood K/mcL 0 K/mcL Region al Lab: basophil [address], count [place] (number/v olume) Automated Rbc 4.19 4.00-5. Final Pathol ogists' blood M/mcL 20 Regional L ab: basophil M/mcL [address], count [place] (number/v olume) Automated Hemoglobin 12.3 12.0-15 Final P athologists' blood g/dL .0 g/dL Regional Lab: basophil [address], count [place] (number/v olume) Automated Hematocrit 37.8 % 36.0-48 Final P athologists' blood .0 % Regional L ab: basophil [address], count [place] (number/v olume) Automated Mean Cell 90.2 fL 80.0-10 Final P athologists' blood Volume 0.0 fL Regional L ab: basophil [address], count [place] (number/v olume) Automated Mean 29.2 pg 26.0-34 Final Patho logists' blood Corpuscular .0 pg Regio nal Lab: basophil Hemoglobin [address], count [place] (number/v olume) Automated Mean 32.4 31.0-36 Final Pathol ogists' blood Corpuscular g/dL .0 g/dL Ana M onal Lab: basophil HGB Conc [address], count [place] (number/v olume) Automated Red Cell 13.1 % 11.5-14 Final Pat hologists' blood Distribution .5 % Ana M onal Lab: basophil Width [address], count [place] (number/v olume) Automated Platelet 264 140-440 Final Pat hologists' blood Count K/mcL K/mcL Regional L ab: basophil [address], count [place] (number/v olume) Automated Mean Platelet 8.5 fL 7.4-10. Final Pathologists' blood Volume 4 fL Regional L ab: basophil [address], count [place] (number/v olume) Automated Gran % 59.9 % 38.0-78 Final Patho logists' blood .0 % Regional L ab: basophil [address], count [place] (number/v olume) Automated Lymph % 25.7 % 15.5-49 Final Path ologists' blood .0 % Regional L ab: basophil [address], count [place] (number/v olume) Automated [place] % 8.2 % 1.0-12. Final Patho logists' blood 0 % Regional L ab: basophil [address], count [place] (number/v olume) Automated Eos % 5.2 % 0.0-7.0 Final Pathol ogists' blood % Regional L ab: basophil [address], count [place] (number/v olume) Automated Baso % 1.0 % 0.0-2.0 Final Patho logists' blood % Regional L ab: basophil [address], count [place] (number/v olume) Automated Gran # 3.9 1.8-8.0 Final Patho logists' blood K/mcL K/mcL Regional L ab: basophil [address], count [place] (number/v olume) Automated Lymph # 1.7 1.5-4.8 Final Path ologists' blood K/mcL K/mcL Regional L ab: basophil [address], count [place] (number/v olume) Automated [place] # 0.5 0.1-0.9 Final Patho logists' blood K/mcL K/mcL Regional L ab: basophil [address], count [place] (number/v olume) Automated Eos # 0.3 0.0-0.7 Final Pathol ogists' blood K/mcL K/mcL Regional L ab: basophil [address], count [place] (number/v olume) Automated Baso # 0.1 0.0-0.3 Final Patho logists' blood K/mcL K/mcL Regional L ab: basophil [address], count [place] (number/v olume) 04/05/2019 Urinalysi Urine Color yellow Anaya l Pathologists' s, Regional L ab: Microscop [address], ic [place] Urine hazy Final Pathologis ts' Appearance Region al Lab: [address] , [place] Specific 1.018 1.000-1 Final Pathol ogists' [place],urine .035 Reg ional Lab: [address] , [place] pH,urine 5.0 5.0-9.0 Final Pathol ogists' Regional L ab: [address] , [place] Urine Protein neg neg Final Pa thologists' mg/dL mg/dL Regional L ab: [address] , [place] Urine Glucose negativ neg Final P athologists' (UA) e mg/dL mg/dL Regional Lab: [address] , [place] Urine Ketone neg neg Final Pat hologists' mg/dL mg/dL Regional L ab: [address] , [place] Urine neg neg Final Pathologis ts' Urobilinogen mg/dL mg/dL Ana M onal Lab: [address] , [place] Urine neg neg Final Pathologis ts' Bilirubin mg/dL mg/dL Regiona l Lab: [address] , [place] Urine Blood neg <0.03 Final Path ologists' mg/dL mg/dL Regional L ab: [address] , [place] Urine Nitrite neg neg Final Pa thologists' Regional L ab: [address] , [place] Urine neg /uL neg /uL Final Patholog ists' Leukocyte Regiona l Lab: Esterase [address], [place] Urine RBC < 1 0-1 Final Pathol ogists' /hpf /hpf Regional L ab: [address] , [place] Urine WBC 1 /hpf 0-4 Final Pathol ogists' /hpf Regional L ab: [address] , [place] High Urine 13 /hpf 0-4 Final Pathologi sts' Squamous /hpf Regional Lab: Epithelial [address], Cell [place] Urine 0 /hpf 0 /hpf Final Pathologis ts' Bacteria Regional Lab: [address] , [place] Urine Mucus few 0 /hpf Final Path ologists' /hpf Regional L ab: [address] , [place] Add Culture? no Final Pat hologists' Regional L ab: [address] , [place] 04/05/2019 CMP, Glucose,rando 75 70-105 Final Pathologists' Serum or m mg/dL mg/dL Regional Lab: Plasma [address] , [place] High Blood Urea 24 8-23 Final Patho logists' Nitrogen mg/dL mg/dL Regional Lab: [address] , [place] Creatinine 0.8 0.6-1.1 Final Path ologists' mg/dL mg/dL Regional L ab: [address] , [place] Sodium 145 133-145 Final Patholog ists' mmol/L mmol/L Regional L ab: [address] , [place] High Potassium 5.2 3.3-5.1 Final Patho logists' mmol/L mmol/L Regional L ab: [address] [place] [address] Chloride 106 96-108 Final Patholo gists' mmol/L mmol/L Regional L ab: [address] [facility] , [place] Carbon 27 22-30 Final Pathologi sts' Dioxide mmol/L mmol/L Regional Lab: [address] [place] [address] Anion Gap 12.0 8-16 Final Pathol ogists' Regional L ab: [address] [place] [address] Low Calcium 8.3 8.6-10. Final Patholo gists' mg/dL 4 mg/dL Regional Lab: [address] [place] [address] Total Protein 6.1 5.9-8.4 Final P athologists' gm/dL gm/dL Regional L ab: [address] [place] [address] Albumin 4.1 3.2-5.2 Final Patholo gists' gm/dL gm/dL Regional L ab: [address] [place] [address] Low Globulin 2.0 2.2-3.7 Final Pathol ogists' gm/dL gm/dL Regional L ab: [address] [place] [address] Alb/glob 2.1 1.0-2.3 Final Pathol ogists' Ratio Regional L ab: [address] [place] [address] Bilirubin,tot 0.3 0.0-1.0 Final P athologists' al mg/dL mg/dL Regional L ab: [address] [place] [address] AST/SGOT 13 U/l 0-37 Final Patholo gists' U/l Regional L ab: [address] [place] [address] ALT/SGPT 12 U/l 0-40 Final Patholo gists' U/l Regional L ab: [address] [place] [address] Alkaline 70 U/L 39-117 Final Patholo gists' Phosphatase U/L Regio nal Lab: [address] [place] [address] Glomerular 76 Final Patho logists' Filtration Region al Lab: Rate [address] [place] [address] 04/05/2019 Lipid High Cholesterol 236 <200 Final Pathologists' Panel, mg/dL mg/dL Regional L ab: Blood [address] [place] [address] Triglycerides 87 <150 Final Pa thologists' mg/dL mg/dL Regional L ab: [address] [place] [address] HDL 87 >40 Final Pathologis ts' Cholesterol mg/dL mg/dL Regio nal Lab: [address] [place] [address] High LDL,calculate 132 see Final Pa thologists' d mg/dL chart Regional L ab: mg/dL [facility] , [place] High non-HDL 149 LDL Final Patholog ists' Cholesterol target+ Ana M onal Lab: [address] [place] [address] 04/05/2019 TSH, Serum or TSH with 3.49 0.27-5. Final Pathologists' Serum or plasma Reflex FT4 uIU/mL 01 Ana M onal Lab: Plasma thyroid uIU/mL [address], stimulati [place] ng hormone (TSH) measureme nt (units/vo lume) Serum or Results Pathol ogists' plasma Regional L ab: thyroid [address], stimulati [place] ng hormone (TSH) measureme nt (units/vo lume) Past Encounters 07/04/2022 Osteoporosis Isreal Garcia MD: [address] [place] [address], [place] [phone], Ph. 05/15/2022 Preoperative Cardiovascular Examination; Cardiovascular Stress Test Abnormal; Essential Hypertension; Mixed Hyperlipidemia Db Ugalde MD: [address] [place] [address] , [place] [phone], Ph. 04/11/2022 Essential Hypertension; Hyperlipidemia; Intussusception of Intestine; Osteoporosis; Gastroesophageal Reflux Disease; Adult Health Examination; Screening for Malignant Neoplasm of Breast; Mixed Anxiety and Depressive Disorder Isreal Garcia MD: [address] [place] [address], [place] [phone], Ph. 2022 Eczema; Irritable Bowel Syndrome; Epigas tric Fullness Isreal Garcia MD: [address] [place] [address], [place] [phone], Ph. 01/02/2022 Osteoporosis Isreal Garcia MD: [address] [place] [address], [place] [phone], Ph. 07/04/2021 Osteoporosis Isreal Garcia MD: [address] [place] [address], [place] [phone], Ph. 05/31/2021 Essential Hypertension; Generalized Head ache Isreal Garcia MD: [address] [facility] [address] [facility], [address], [place] [address], Ph. 04/09/2021 Adult Health Examination; Screening for Malignant Neoplasm of Breast; Essential Hypertension; Osteoporosis; Pain in Thoracic Spine Isreal Garcia MD: [address] [facility] [address] [facility], [address], [place] [phone], Ph. Social History Tobacco Smoking Status Never Smoker Vaccine List Vaccine Type COVID-19, mRNA, LNP-S, PF, 100 mcg/0.5 m L dose (Moderna) 11/17/2020 12/15/2020 influenza, injectable, quadrivalent, pre servative free 09/07/20190.5 mL Plan of Care Reminders Provider Appointments None recorded. Lab None recorded. Referral None recorded. Procedures None recorded. Surgeries None recorded. Imaging None recorded. Vitals 05/15/2022 08:30AM CARDIO- NEW PATIENT Height Weight BMI Blood Pressure 4 ft 11 in 151 lbs 30.5 kg/m2 122/83 mm[Hg] 04/11/2022 11:00AM MEDICARE ANNUAL WELLNESS Height Weight BMI Blood Pressure 4 ft 11 in 147.8 lbs 29.9 kg/m2 116/64 mm[Hg] 2022 09:30AM Established Patient 30 Height Weight BMI Blood Pressure 4 ft 11 in 147 lbs 29.7 kg/m2 159/98 mm[Hg] 05/31/2021 11:30AM Established Patient 30 Height Weight BMI Blood Pressure 4 ft 11 in 157.4 lbs 31.8 kg/m2 168/118 mm[Hg] 04/09/2021 03:00PM MEDICARE ANNUAL WELLNESS Height Weight BMI Blood Pressure 4 ft 11 in 155.6 lbs 31.4 kg/m2 154/100 mm[Hg] 11/20/2020 01:00PM Established Patient 30 Height Weight BMI Blood Pressure 5 ft 157 lbs 30.7 kg/m2 140/84 mm[Hg] 10/18/2020 04:30PM Established Patient 30 Height Weight BMI Blood Pressure 5 ft 156 lbs 30.5 kg/m2 142/92 mm[Hg] 04/06/2020 10:00AM [id number] Height Weight BMI Blood Pressure 5 ft 156 lbs 30.5 kg/m2 156/100 mm[Hg] 12/06/2019 04:30PM Established Patient 30 Height Blood Pressure 5 ft 140/90 mm[Hg] 10/06/2019 09:00AM Established Patient 30 Height Weight BMI Blood Pressure 5 ft 154 lbs 30.1 kg/m2 142/88 mm[Hg] 06/29/2019 07:00PM Established Patient 30 Height Blood Pressure 5 ft 130/80 mm[Hg] 04/05/2019 10:00AM [id number] Height Weight BMI Blood Pressure 5 ft 154 lbs 30.1 kg/m2 140/86 mm[Hg] 01/20/2019 11:00AM Established Patient 30 Height Blood Pressure 5 ft 120/84 mm[Hg]
[2022-07-17] MEDS ORDERED: SCOPOLAMINE 1 PATCH PATCH TOPICAL PRN (07:30)
[2022-07-17] MEDS ORDERED: IPRATROPIUM/ALBUTEROL 3 ML AMPUL.NEB NEB PRN ×2 (08:00→10:35)
[2022-07-17] MEDS ORDERED: PROPOFOL 200 MG/20 ML VIAL IV ONE (09:24)
[2022-07-17] MEDS ORDERED: MIDAZOLAM 2 MG/2 ML VIAL ONE (09:24)
[2022-07-17] MEDS ORDERED: fentaNYL 100 MCG/2 ML VIAL IV ONE (09:24)
[2022-07-17] MEDS ORDERED: SUGAMMADEX SODIUM 200 MG/2 ML VIAL IV ONE (09:24)
[2022-07-17] MEDS ORDERED: KETAMINE 50 MG/ML Syringe (ANEST) IV ONE (09:24)
[2022-07-17] MEDS ORDERED: ONDANSETRON 4 MG/2 ML VIAL ONE (09:24)
[2022-07-17] MEDS ORDERED: HYDROmorphone 1 MG/ML SYRINGE ONE (09:24)
[2022-07-17] MEDS ORDERED: ePHEDrine 50 MG/5 ML SYRINGE (ANEST) IV ONE (09:24)
[2022-07-17] MEDS ORDERED: LIDOCAINE HCL/PF 100 MG/5 ML SYRINGE IV ONE (09:24)
[2022-07-17] MEDS ORDERED: ROCURONIUM 10 MG/ML ML IV ONE (09:24)
[2022-07-17] MEDS ORDERED: DEXAMETHASONE 10 MG/ML VIAL ONE (09:24)
[2022-07-17] MEDS ORDERED: ONDANSETRON 4 MG/2 ML VIAL IV PRN (10:35)
[2022-07-17] MEDS ORDERED: METOCLOPRAMIDE 10 MG/2 ML VIAL IV PRN (10:35)
[2022-07-17] MEDS ORDERED: NALOXONE HCL 0.4 MG/ML VIAL IV PRN (10:35)
[2022-07-17] MEDS ORDERED: ACETAMINOPHEN 1,000 MG/100 ML BAG IV ONE (10:35)
[2022-07-17] MEDS ORDERED: METHOCARBAMOL 1,000 MG/10 ML VIAL IV PRN (10:35)
[2022-07-17] MEDS ORDERED: HYDROmorphone 0.5 MG/0.5 ML SYRINGE IV PRN (10:35)
[2022-07-17] MEDS ORDERED: LACTATED RINGERS 250 ML IV PRN (10:35)
[2022-07-17] MEDS ORDERED: PROMETHAZINE 25 MG/ML VIAL IM PRN (10:35)
[2022-07-17] MEDS ORDERED: MEPERIDINE 50 MG/ML VIAL IM PRN (10:35)
[2022-07-17] MEDS ORDERED: MEPERIDINE 25 MG/ML VIAL IV PRN (10:35)
[2022-07-17] MEDS ORDERED: diphenhydrAMINE 50 MG/ML VIAL IV PRN (10:35)
[2022-07-17] MEDS ORDERED: fentaNYL 100 MCG/2 ML VIAL IV PRN (10:35)
--- NOTE | 2022-07-17 10:49 | Brief Operative Note ---
Brief Operative Note Date of procedure: 07/17/22 Pre-op diagnosis: jejunojejunostomy intussuception with partial obstruction Post-op diagnosis: other (racheal en y gastrojejunostomy with jejunojejunal intussception and partial obstruction) Procedure: laparotomy with plication of jejunojejunostomy segmnt Grafts/Implants: No Anesthesia: GETA Findings: dilation of proximal jejunum and intussusception of racheal en y limb Complications: none Surgeon: Sam Vaughan Estimated blood loss (cc): 10 Specimens Removed/Pathology: none sent Condition: stable Disposition: PACU
[2022-07-17] MEDS ORDERED: PROMETHAZINE 25 MG/ML VIAL IV PRN (10:54)
[2022-07-17] MEDS: FLUMAZENIL 0.1 MG/ML ML IV PRN ×2 (11:41→12:12)
[2022-07-17] MEDS: METOCLOPRAMIDE 10 MG/2 ML VIAL IV SCH ×2 (13:28→18:02)
[2022-07-17] MEDS: 0.9 % SODIUM CHLORIDE 1,000 ML IV SCH (15:10)
[2022-07-17] MEDS: CEFEPIME 1 GM VIAL IV SCH ×2 (15:10→21:52)
[2022-07-17] MEDS: ACETAMINOPHEN 1,000 MG/100 ML BAG IV SCH ×2 (18:01→23:02)
[2022-07-17] MEDS: CITALOPRAM 20 MG TABLET PO SCH (20:53)
[2022-07-18] MEDS: METOCLOPRAMIDE 10 MG/2 ML VIAL IV SCH ×4 (00:11→17:21)
[2022-07-18] MEDS: 0.9 % SODIUM CHLORIDE 1,000 ML IV SCH ×4 (01:07→13:15)
[2022-07-18] MEDS: ACETAMINOPHEN 1,000 MG/100 ML BAG IV SCH ×2 (04:45→11:24)
[2022-07-18] MEDS: CEFEPIME 1 GM VIAL IV SCH ×3 (05:52→20:58)
[2022-07-18 06:23] LABS: Basophils # (Auto) 0.03 K/mcL (0.00-0.30); Basophils % (Auto) 0.3 % (0.0-2.0); Eosinophils # (Auto) 0.01 K/mcL (0.00-0.70); Eosinophils % (Auto) 0.1 % (0.0-7.0); Hematocrit 28.9 % (34.1-44.9); Lymphocytes # (Auto) 0.63 K/mcL (1.50-4.80); Lymphocytes % (Auto) 5.3 % (15.5-49.0); Mean Cell Volume 95.4 fL (80.0-100.0); Mean Corpuscular HGB Conc 31.1 g/dL (31.0-36.0); Mean Platelet Volume 9.7 fL (8.8-12.5); Monocytes # (Auto) 0.86 K/mcL (0.10-0.90); Monocytes % (Auto) 7.2 % (1.0-12.0); Neutrophils % (Auto) 86.6 % (38.0-78.0); Platelet Count 241 K/mcL (140-440); RBC 3.03 M/mcL (3.59-5.38); Red Cell Distribution Width 13.1 % (11.5-14.5)
--- NOTE | 2022-07-18 15:27 | General Surgery Progress Note ---
SUBJECTIVE Subjective Patient information: Note initiated : 07/18/22 at 3:22 pm Service Date, if different from initiated Date: [] Patient: Rebecca Hsu 72 y/o F admitted on 07/17/22 for Small Bowel Resection. Chief Complaint: [] Interval history: Patient is stable and improved. She has tolerated clear liquids without difficulty. Lab. She has states that she is not ready for increase in at this time. She has had flatus but no bowel movement times. Her incision is unremarkable. Constitutional Vitals: Vital Signs Temp Pulse Resp BP Pulse Ox O2 Del Method O2 Flow Rate 98.8 F 76 20 130/81 94 1 07/18/22 11:34 07/18/22 11:34 07/18/22 11:34 07/18/22 11:34 07/18/22 11:34 07/18/22 11:34 07/17/22 23:12 Period Temp Pulse Resp BP Sys/[place] Pulse Ox O2 Del Method O2 Flow Rate Last 24 Hr 97.7 F-98.8 F 76-98 16-20 97-130/64-81 93-99 Nasal Cannula- Room Air 1-2 Intake and Output 07/18/22 07/18/22 07/18/22 05:59 13:59 21:59 Intake Total 1300 1580 Output Total 1650 1200 400 Balance -350 380 -400 Weight 160 lb 1.6 oz Patient Weight 07/19/22 05:59 Weight 160 lb 1.6 oz Intake & Output: Intake & Output 07/18/22 07/18/22 07/18/22 05:59 13:59 21:59 Intake Total 1300 1580 Output Total 1650 1200 400 Balance -350 380 -400 Weight 160 lb 1.6 oz Intake: IV 1200 1100 Sodium Chloride 0.9% 1,000 ml @ 1000 1000 100 mls/hr IV .Q10H TIANA Rx#: [id number] Oral 100 480 Output: Void Amount 1650 1200 400 Other: Meal Breakfast Percent of Meal Consumed 100% Urine Appearance Clear Clear Urine Color Pale Yellow Yellow Urine Odor Normal ENT ENT exam: Present normal exam and normal oropharynx Neck Neck exam: Present full ROM and normal inspection Respiratory Respiratory exam: Present normal respiratory exam and CTAB Cardiovascular Cardiovascular exam: Present normal rate and rhythm, RRR, +S1 and +S2; Absent JVD GI/Abdominal GI/Abdominal exam: Present normal bowel sounds and tenderness ( mild incisional tenderness); Absent distended Extremities Exam Extremities exam: Present neurovascular intact Neurological Exam Neurological exam: Present oriented X3 and reflexes normal; Absent motor sensory deficit Psychiatric Psychiatric exam: Present normal affect A/P Assessment and plan (1) Jejunal intussusception: Status: Acute (2) Diffuse abdominal pain: Status: Acute (3) Essential hypertension: Status: Chronic Plan Continue present treatment Advance diet in a.m. Sepsis Sepsis Identified: No Time Spent With Patient Time: Total time spent is greater than 50% in coordination of care (as documented) at patient's floor/unit and/or counseling patient:
[2022-07-18] MEDS ORDERED: ACETAMINOPHEN 1,000 MG/100 ML BAG IV SCH (19:15)
[2022-07-18] MEDS: CITALOPRAM 20 MG TABLET PO SCH (20:28)
[2022-07-18] MEDS: HYDROmorphone 1 MG/ML SYRINGE IV PRN (20:29)
[2022-07-19] MEDS: ACETAMINOPHEN 1,000 MG/100 ML BAG IV SCH ×4 (00:25→12:41)
[2022-07-19] MEDS: METOCLOPRAMIDE 10 MG/2 ML VIAL IV SCH ×4 (01:07→12:41)
[2022-07-19] MEDS: HYDROmorphone 1 MG/ML SYRINGE IV PRN (05:36)
[2022-07-19] MEDS: CEFEPIME 1 GM VIAL IV SCH ×2 (05:37→14:53)
--- NOTE | 2022-07-19 07:02 | XRay Report ---
INDICATION: FOR F/U OF ILEUS. Status post small bowel resection. TECHNIQUE: Supine and upright abdomen. COMPARISON: None FINDINGS:There are skin aye in a vertical midline abdominal incision. There is gas in colon. There is moderately dilated gas-filled small bowel in the left-sided the abdomen. Findings are consistent with postsurgical ileus. Findings are not consistent with mechanical small bowel obstruction. There is no biliary or portal venous gas. There is no pneumoperitoneum. There is no focal abnormality. IMPRESSION: Findings consistent with postsurgical ileus Interpreted and Authenticated by: Mello Johnson 07/19/22
--- NOTE | 2022-07-19 14:40 | Discharge Summary ---
Discharge Provider Provider IMPORTANT FOLLOW-UP INFORMATION FOR PCP: Patient information: Note initiated : 07/19/22 at 2:35 pm Service Date, if different from initiated Date: [] Patient: Rebecca Hsu 72 y/o F admitted on 07/17/22 for Small Bowel Resection. Chief Complaint: [] Date of admission: 07/17/22 07:24 Discharge date: 07/19/22 Primary care physician: Georges Mchugh Admitting clinician: Sam Vaughan Attending physician on admission: Sam Vaughan Attending physician on discharge: Sam Vaughan Discharging clinician: Sam Vaughan COURSE Hospital Course Hospital course: 72-year-old female with prior prior history crampy abdominal pain with nausea and vomiting. Evaluation revealed suspected jejunal mass with intussusception. 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 The proximal limb was dilated but the anastomosis was widely patent. The bowel was reduced the bowel was plicated to the distal bowel with running 2-0 Monocryl. It was felt that resection was not necessary. She has done well and has tolerated diet. She has had flatus but no bowel movement. Clinically she is stable to be discharged home with follow-up in the office. Discharge diagnosis: Jejunal jejunal intussusception Secondary discharge diagnosis: Small bowel mass with obstruction Reason for admission: Recurrent jejunal intussusception Procedures: Laparotomy with reduction of intussusception Pertinent studies/significant findings: None Complications: None Time Spent with Patient Time attestation: Total time spent providing and/or coordinating discharge services: Time spent: Less than 30 minutes Physical Examination Vital Signs Vital signs: Temp Pulse Resp BP Pulse Ox O2 Del Method O2 Flow Rate 98.0 F 64 16 151/83 94 0.5 07/19/22 11:59 07/19/22 11:59 07/19/22 11:59 07/19/22 11:59 07/19/22 11:59 07/19/22 11:59 07/19/22 11:59 General physical appearance General physical exam: well developed, well nourished and no distress Eyes Eye exam: PERRL and normal ocular movement ENT ENT exam: normal pinna, normal nares, normal mucosa and decreased hearing Head Head exam IM: Present atraumatic, normal inspection and normocephalic Neck Neck exam: no masses, no bruits, trachea midline, no lymphadenopathy and no venous distension Cardiovascular Cardiovascular exam IM: Present normal rate and rhythm, RRR, +S1 and +S2; Absent JVD Respiratory Respiratory exam: normal expansion, normal respiratory effort, clear to auscultation and other Abdomen Abdomen: Present soft, tender (Mild incisional tenderness) and bowel sounds (Good active bowel sounds) Integumentary Integumentary: Present no rash, no growths and no abnormal pigmentation Neurologic Neurologic: Present normal coordination and normal sensation Musculoskeletal Musculoskeletal: Present normal gait and normal posture Psychiatric Psychiatric: Present oriented to time, oriented to person, oriented to place, speech is normal and memory intact Discharge Plan Patient/Caregiver Discharge Instructions Activity: increase activity as tolerated Diet: Regular Diet Prescriptions: New oxycodone-acetaminophen [Endocet] 10-325 mg tablet 1 tab PO Q4H PRN (Reason: Pain) Qty: 30 0RF oxycodone-acetaminophen [Endocet] 10-325 mg tablet 1 tab PO Q4H PRN (Reason: Pain) Qty: 40 0RF Continued flax seed oil 1,400 mg PO QAM Label Comments: HOLDING FOR SURGERY vitamin E 200 unit capsule 400 unit PO QAM losartan-hydrochlorothiazide 100-12.5 mg tablet 1 tab PO QAM omeprazole 20 mg capsule,delayed release(DR/EC) 20 mg PO BID atorvastatin 10 mg tablet 10 mg PO QDAY cholecalciferol (vitamin D3) 25 mcg (1,000 unit) capsule 25 mcg PO QAM Le-Evgeny Thrive 1 tab PO DAILY citalopram 40 MG tablet 40 mg PO HS estradiol 1 MG tablet 1 mg PO HS calcium 600 mg Capsule 600 mg PO BID magnesium Tablet 400 tab PO QPM Follow Up Plan Follow up with: Sam Vaughan MD [Physician] - 08/01/22 1:00 pm Patient Disposition: Home, Self-Care Rehab Potential: Good I certify that the patient requires SNF services: No Overall status at discharge: patient is progressing back to baseline Discharge Orders: Discharge Order (Routine); Ordered 07/19/22 Ordered By: Sam Vaughan Pending Pending Pending: Diet Full Liquid Diet Start Kita Jul 18 154 Cefepime HCl (Cefepime 1 Gm Vial) 1 gm IV Q8H TIANA; Protocol Last Admin: 07/19/22 05:37 Dose: 1 gm Documented By: Admin: 07/18/22 20:58 Dose: 1 gm Documented By: Admin: 07/18/22 13:02 Dose: 1 gm Documented By: Admin: 07/18/22 05:52 Dose: 1 gm Documented By: Admin: 07/17/22 21:52 Dose: 1 gm Documented By: Admin: 07/17/22 15:10 Dose: 1 gm Documented By: SHIRIN Citalopram Hydrobromide (Citalopram 20 Mg Tablet) 40 mg PO HS TIANA Last Admin: 07/18/22 20:28 Dose: 40 mg Documented By: Admin: 07/17/22 20:53 Dose: 40 mg Documented By: NIKOLAS Hydromorphone HCl (Hydromorphone 1 Mg/Ml Syringe) 1 mg IV Q2HP PRN; Protocol PRN Reason: Per Pain Protocol Last Admin: 07/19/22 05:36 Dose: 1 mg Documented By: Admin: 07/18/22 20:29 Dose: 1 mg Documented By: ANT Acetaminophen (Ofirmev) 1,000 mg in 100 mls @ 200 mls/hr IV Q6H TIANA; Protocol Last Admin: 07/19/22 12:41 Dose: 200 mls/hr Documented By: Infusion: 07/19/22 06:08 Dose: 0 mls/hr Documented By: Admin: 07/19/22 05:38 Dose: 200 mls/hr Documented By: Infusion: 07/19/22 01:00 Dose: 0 mls/hr Documented By: Admin: 07/19/22 00:25 Dose: 200 mls/hr Documented By: ANT Metoclopramide HCl (Metoclopramide 10 Mg/2 Ml Vial) 10 mg IV Q6 TIANA Last Admin: 07/19/22 12:41 Dose: 10 mg Documented By: Admin: 07/19/22 05:38 Dose: 10 mg Documented By: Admin: 07/19/22 01:07 Dose: 10 mg Documented By: Admin: 07/18/22 17:21 Dose: 10 mg Documented By: Admin: 07/18/22 11:24 Dose: 10 mg Documented By: Admin: 07/18/22 05:52 Dose: 10 mg Documented By: Admin: 07/18/22 00:11 Dose: 10 mg Documented By: Admin: 07/17/22 18:02 Dose: 10 mg Documented By: [email or web address] Admin: 07/17/22 13:28 Dose: 10 mg Documented By: [email or web address] Shift Summary 07/18/22 16:09 Shift Summary by Dolly Noland Registration Status: IP-Med/Surg Date of Surgery (if applicable):07/17 Pertinent Medical Dx/Issue(s): HTN, GERD, IBS Med management (antibiotics, diuretics, BP): Scheduled Ofirmev, Reglan, Maxipime. PRN Dilaudid not needed Skin/Wound Care: Transparent drsng over mid-line aye, scant serosang. drainage. Vital Signs with Trends: VSS O2, liter flow/saturations: R/A Pain management (acute vs. chronic): Reports adequate control with scheduled Ofirmev. Lab/Rad (abnormals, trends): WBC- 12 Neuro/Mental Status: A/O x4 very pleasant, cheerful, appreciative of care. Cardiac Rhythm, Alarm Settings: N/A Urinary Elimination Device: Voids large quantity/ BRP standby assist only. Urinary output greater than 30mL/hr? Yes Date of last BM: Lines/Tubes: IV LFA, SL Activity: BRP w/standby assist. Recommendations/questions for MD: Discharge Plan (needs, disposition, etc): anticipate return to home. Initialized on 07/18/22 16:09 - END OF NOTE
--- NOTE | 2022-07-23 14:52 | Operative Note ---
DATE OF OPERATION: 07/17/2022 DATE OF PROCEDURE: 07/17/2022 PREOPERATIVE DIAGNOSIS: Jejunojejunal intussusception with partial obstruction. POSTOPERATIVE DIAGNOSIS: Lizet-en-Y gastrojejunostomy with jejunojejunal intussusception and partial obstruction. PROCEDURE: Laparotomy with plication of the jejunojejunostomy segment. SURGEON: Sam Vaughan M.D. FINDINGS: Dilation of the proximal jejunum and intussusception of the Lizet-en-Y limb into the distal jejunum. DESCRIPTION OF PROCEDURE: Under general anesthesia, the patient's abdomen was prepped and draped in a sterile field. A midline incision was made. Inspection revealed that the patient had a Lizet-en-Y gastrojejunostomy with a short proximal jejunal segment and a fairly long distal segment attached to the gastric remnant. There was evidence of intussusception into the proximal segment into the distal jejunal segment. This was reduced. The bowel otherwise looked unremarkable. Rather than do resection, it was elected to simply plicate the jejunojejunal limb to each other using a permanent suture to prevent a repeat intussusception. The bowel was laid next to each other and a serosal to serosal plication of the proximal jejunal segment to the distal jejunal segment was carried out for distance of about 6 inches. This was also stabilized with interrupted 3-0 silk. It was felt that this would prevent the proximal segment from intussuscepting. No other pathology was noted. The bowel was placed back into the peritoneal cavity. The fascia was closed with #1 Prolene on the fascia and a 2-0 Monocryl in the subcutaneous fascia. Skin was closed with aye. The patient tolerated the procedure well. She was awakened and taken to the postanesthetic care unit in satisfactory condition. LCS:isabella Job ID: [id number] Doc ID: [id number] Sam Vaughan M.D.
== END 2022-07-19 15:30 | disposition home or self-care (01) | DRG 346 ==
LOC: MEDSUR 07:24
PROVIDERS: ADMIT Family Medicine Adult Medicine; ATTEND Family Medicine Adult Medicine